=== PATIENT | female | born 1945 | race Caucasian/White ===

== ENCOUNTER 2019-10-13 09:38 | Inpatient (IN) ==
[2019-10-13] MEDS ORDERED: SODIUM CHLORIDE 0.9% 500 ML IV STA (10:07)
[2019-10-13 10:21] LABS: Basophils % 0.4 % (0.0-0.8); Hematocrit 37.7 VOL% (35.7-47.0); Hemoglobin 12.9 GM/DL (12.0-16.0); Immature Granulocytes % 0.6 %; Immature Granulocytes Absolute 0.04 #; Lymphocytes # 0.7 10*3/uL (1.4-4.0); Lymphocytes % 10.7 % (21.3-54.2); Mean Corpuscular HGB Conc 34.2 GM/DL (32-36); Mean Corpuscular Volume 96.2 FL (87-102); Mean Platelet Volume 9.3 FL (9.6-12.0); Monocytes % 7.4 % (1.7-12.7); Neutrophils % 80.9 % (38.7-73.9); Platelet Count 219 T/CUMM (130-400); Red Blood Count 3.92 MC/CUMM (3.8-5.5); Red Cell Distribution Width 12.3 % (9.3-17.3); White Blood Count 6.9 T/CUMM (4-12)
[2019-10-13] MEDS ORDERED: ONDANSETRON 4 MG/2 ML VIAL ONE (10:42)
[2019-10-13] MEDS ORDERED: ONDANSETRON 4 MG/2 ML VIAL IV ONE (10:42)
[2019-10-13] MEDS ORDERED: HYDROmorphone 2 MG/1 ML VIAL IV STA ×2 (10:42→12:13)
[2019-10-13] MEDS ORDERED: HYDROmorphone 2 MG/1 ML VIAL ONE (10:42)
[2019-10-13 10:50] LABS: Albumin 2.9 G/DL (3.4-5.0); Bilirubin,Total 0.4 MG/DL (0.2-1.0); Calcium 7.6 MG/DL (8.5-10.1); Osmolality,Calculated 259.8 MOS/KG (273-304); Total Protein 6.5 G/DL (6.4-8.3)
[2019-10-13] MEDS ORDERED: hydrALAZINE 20 MG/1 ML VIAL IV PRN (11:11)
[2019-10-13] MEDS ORDERED: DOCUSATE SODIUM 100 MG CAPSULE PO PRN (11:11)
[2019-10-13] MEDS ORDERED: GLUCAGON 1 MG VIAL IM PRN (11:11)
[2019-10-13] MEDS ORDERED: ONDANSETRON 4 MG/2 ML VIAL IV PRN (11:11)
[2019-10-13] MEDS ORDERED: DEXTROSE 10% 250 ML BAG IV PRN (11:11)
[2019-10-13] MEDS ORDERED: POTASSIUM CHLORIDE 20 MEQ TABLET PO PRN (11:18)
[2019-10-13] MEDS ORDERED: POTASSIUM CHLORIDE RIDER 10 MEQ in PREMIX 1 EACH IV PRN (11:18)
[2019-10-13 11:20] LABS: Apearance,Urine Slightly Hazy (Clear); Bacteria,Urine Moderate /HPF (Few); Bilirubin,Urine Negative (Negative); Blood, Urine Negative (Negative); Glucose,Urine (UA) Negative (Negative); Ketones,Urine 5 mg/dL (Negative); Mucus,Urine Occasional /LPF (Occasional); Nitrite,Urine Positive (Negative); Protein,Urine Negative; RBC,Urine 1 /HPF (0-4); Squamous Epithelial Cell,Urine Occasional /HPF (0-10); Urine Color Yellow (Yellow); Urine Specific Gravity 1.016 (1.001-1.035); Urine Urobilinogen < 2.0 EU/DL (0.2-1.0); WBC,Urine 3 /HPF (0-6)
[2019-10-13 11:42] LABS: Risk Ratio 2.12; Thyroid Stimulating Hormone 2.54 uIU/ml (0.358-3.74); VLDL CHOLESTEROL 17.4 MG/DL
[2019-10-13] MEDS: SODIUM CHLORIDE 0.9% 1,000 ML IV SCH (14:41)
[2019-10-13] MEDS: amLODIPine 10 MG TABLET PO SCH (14:42)
[2019-10-13] MEDS: HYDROmorphone 2 MG/1 ML VIAL IV PRN ×4 (14:47→23:10)
[2019-10-13] MEDS: carvediloL 25 MG TABLET PO SCH (20:36)
[2019-10-13] MEDS: carBAMazepine 200 MG TABLET PO SCH (23:00)
[2019-10-14] MEDS: HYDROmorphone 2 MG/1 ML VIAL IV PRN (01:21)
[2019-10-14] MEDS: SODIUM CHLORIDE 0.9% 1,000 ML IV SCH ×3 (01:52→19:00)
[2019-10-14 05:50] LABS: Basophils % 0.3 % (0.0-0.8); Eosinophils % 0.2 % (0.00-10.9); Hematocrit 33.2 VOL% (35.7-47.0); Hemoglobin 11.2 GM/DL (12.0-16.0); Immature Granulocytes % 0.5 %; Immature Granulocytes Absolute 0.03 #; Lymphocytes # 1.2 10*3/uL (1.4-4.0); Mean Corpuscular HGB Conc 33.7 GM/DL (32-36); Mean Corpuscular Volume 98.5 FL (87-102); Mean Platelet Volume 9.6 FL (9.6-12.0); Monocytes % 14.7 % (1.7-12.7); Neutrophils % 64.3 % (38.7-73.9); Platelet Count 202 T/CUMM (130-400); Red Blood Count 3.37 MC/CUMM (3.8-5.5); Red Cell Distribution Width 12.3 % (9.3-17.3); White Blood Count 5.8 T/CUMM (4-12)
[2019-10-14 06:09] LABS: Calcium 7.9 MG/DL (8.5-10.1); Osmolality,Calculated 258.8 MOS/KG (273-304)
[2019-10-14] MEDS ORDERED: ceFAZolin 1,000 MG in SYRINGE 1 EACH IV ONE (07:00)
[2019-10-14] MEDS ORDERED: BACITRACIN OINT 0.9 GM PACK TOP ONE (08:56)
[2019-10-14] MEDS ORDERED: MORPHINE 4 MG/1 ML VIAL IV PRN ×2 (09:05)
[2019-10-14] MEDS ORDERED: KETOROLAC 15 MG/1 ML VIAL IV PRN (09:05)
[2019-10-14] MEDS ORDERED: SEVOFLURANE 1 UNIT/15 MINUTE INH ONE (09:23)
[2019-10-14] MEDS ORDERED: ROPIVACAINE 0.5% 30 ML VIAL ONE (09:23)
[2019-10-14] MEDS ORDERED: PHENYLEPHRINE DRIP 20 MG/250 ML PREMIX IV ONE (09:23)
[2019-10-14] MEDS ORDERED: ONDANSETRON 4 MG/2 ML VIAL ONE ×2 (09:24→09:52)
[2019-10-14] MEDS ORDERED: fentaNYL 100 MCG/2 ML VIAL ONE (09:24)
[2019-10-14] MEDS ORDERED: ePHEDrine 50 MG/ML VIAL ONE (09:24)
[2019-10-14] MEDS ORDERED: ROCURONIUM 100 MG/10 ML VIAL IV ONE (09:25)
[2019-10-14] MEDS ORDERED: GLYCOPYRROLATE 0.4 MG/2 ML VIAL ONE (09:25)
[2019-10-14] MEDS ORDERED: PHENYLEPHRINE 1 MG/10 ML SYRINGE IV ONE (09:25)
[2019-10-14] MEDS ORDERED: propofoL 200 MG/20 ML VIAL IV ONE (09:25)
[2019-10-14] MEDS ORDERED: NEOSTIGMINE 10 MG/10 ML VIAL ONE (09:25)
[2019-10-14] MEDS ORDERED: ONDANSETRON 4 MG/2 ML VIAL IV PRN (09:48)
[2019-10-14] MEDS ORDERED: HYDROmorphone 2 MG/1 ML VIAL IV PRN (09:48)
[2019-10-14] MEDS ORDERED: HYDROmorphone 2 MG/1 ML VIAL ONE (09:51)
[2019-10-14] MEDS: ATORVASTATIN 20 MG TABLET PO SCH (12:20)
[2019-10-14] MEDS: amLODIPine 10 MG TABLET PO SCH (12:20)
[2019-10-14] MEDS: ASPIRIN EC 81 MG TABLET PO SCH (12:20)
[2019-10-14] MEDS: carBAMazepine 200 MG TABLET PO SCH ×2 (12:20→18:16)
[2019-10-14] MEDS: carvediloL 25 MG TABLET PO SCH ×2 (12:20→20:52)
[2019-10-15] MEDS: FONDAPARINUX 2.5 MG/0.5 ML SYRINGE SUBCUT SCH (05:18)
[2019-10-15 05:46] LABS: Basophils % 0.2 % (0.0-0.8); Eosinophils % 0.2 % (0.00-10.9); Hematocrit 25.5 VOL% (35.7-47.0); Hemoglobin 8.5 GM/DL (12.0-16.0); Immature Granulocytes % 0.3 %; Immature Granulocytes Absolute 0.02 #; Lymphocytes # 0.8 10*3/uL (1.4-4.0); Lymphocytes % 13.9 % (21.3-54.2); Mean Corpuscular HGB Conc 33.3 GM/DL (32-36); Mean Corpuscular Volume 98.5 FL (87-102); Mean Platelet Volume 9.9 FL (9.6-12.0); Monocytes % 10.7 % (1.7-12.7); Neutrophils % 74.7 % (38.7-73.9); Red Cell Distribution Width 12.2 % (9.3-17.3)
[2019-10-15 06:10] LABS: Calcium 7.5 MG/DL (8.5-10.1); Osmolality,Calculated 262.5 MOS/KG (273-304)
[2019-10-15 06:35] LABS: Platelet Count 154 T/CUMM (130-400); Red Blood Count 2.59 MC/CUMM (3.8-5.5)
[2019-10-15 06:47] LABS: Microcytosis Slight; Ovalocytes Slight; Platelet Estimate Adequate
[2019-10-15] MEDS: amLODIPine 10 MG TABLET PO SCH (08:24)
[2019-10-15] MEDS: carvediloL 25 MG TABLET PO SCH ×2 (08:24→20:38)
[2019-10-15 08:53] LABS: Ferritin 78.7 ng/ml (8-252)
[2019-10-15 09:00] LABS: Folate 8.7 NG/ML (5.4-24.0); Vitamin B12 218 PG/ML (211-911)
[2019-10-15] MEDS: cefTRIAXone 1,000 MG in SYRINGE 1 EACH IV SCH (10:05)
[2019-10-15] MEDS: carBAMazepine 200 MG TABLET PO SCH ×2 (10:05→18:08)
[2019-10-15] MEDS: ATORVASTATIN 20 MG TABLET PO SCH (10:05)
[2019-10-15] MEDS: ASPIRIN EC 81 MG TABLET PO SCH (10:05)
[2019-10-15 10:15] LABS: Basophils % 0.3 % (0.0-0.8); Eosinophils % 0.2 % (0.00-10.9); Hematocrit 25.5 VOL% (35.7-47.0); Hemoglobin 8.6 GM/DL (12.0-16.0); Immature Granulocytes % 0.3 %; Immature Granulocytes Absolute 0.02 #; Lymphocytes # 0.9 10*3/uL (1.4-4.0); Lymphocytes % 13.1 % (21.3-54.2); Mean Corpuscular HGB Conc 33.7 GM/DL (32-36); Mean Corpuscular Volume 98.1 FL (87-102); Mean Platelet Volume 9.7 FL (9.6-12.0); Monocytes % 11.1 % (1.7-12.7); Platelet Count 150 T/CUMM (130-400); Red Cell Distribution Width 12.2 % (9.3-17.3); White Blood Count 6.5 T/CUMM (4-12)
[2019-10-15 11:23] LABS: Sedimentation Rate-Westergren 40 MM/HR (0-30)
[2019-10-15] MEDS: FERRIC GLUCONATE COMPLEX 125 MG in SODIUM CHLORIDE 0.9% 100 ML IV SCH (12:18)
[2019-10-16] MEDS: FONDAPARINUX 2.5 MG/0.5 ML SYRINGE SUBCUT SCH (05:37)
[2019-10-16 06:26] LABS: Calcium 7.7 MG/DL (8.5-10.1); Osmolality,Calculated 266.2 MOS/KG (273-304)
[2019-10-16 06:35] LABS: Basophils % 0.2 % (0.0-0.8); Eosinophils % 0.6 % (0.00-10.9); Hematocrit 23.9 VOL% (35.7-47.0); Hemoglobin 7.9 GM/DL (12.0-16.0); Immature Granulocytes % 0.4 %; Immature Granulocytes Absolute 0.02 #; Lymphocytes # 1.1 10*3/uL (1.4-4.0); Lymphocytes % 19.7 % (21.3-54.2); Mean Corpuscular HGB Conc 33.1 GM/DL (32-36); Mean Corpuscular Volume 97.6 FL (87-102); Mean Platelet Volume 10.2 FL (9.6-12.0); Monocytes % 11.8 % (1.7-12.7); Neutrophils % 67.3 % (38.7-73.9); Platelet Count 155 T/CUMM (130-400); Red Blood Count 2.45 MC/CUMM (3.8-5.5); Red Cell Distribution Width 12.1 % (9.3-17.3); White Blood Count 5.4 T/CUMM (4-12)
[2019-10-16] MEDS: amLODIPine 10 MG TABLET PO SCH (10:33)
[2019-10-16] MEDS: carvediloL 25 MG TABLET PO SCH ×2 (10:33→20:56)
[2019-10-16] MEDS: ASPIRIN EC 81 MG TABLET PO SCH (10:33)
[2019-10-16] MEDS: ATORVASTATIN 20 MG TABLET PO SCH (10:33)
[2019-10-16] MEDS: MAGNESIUM HYDROXIDE SUSP 30 ML UDCUP PO PRN ×2 (10:34→18:00)
[2019-10-16] MEDS: carBAMazepine 200 MG TABLET PO SCH ×2 (10:34→18:00)
[2019-10-16] MEDS: cefTRIAXone 1,000 MG in SYRINGE 1 EACH IV SCH (10:35)
[2019-10-16] MEDS: FERRIC GLUCONATE COMPLEX 125 MG in SODIUM CHLORIDE 0.9% 100 ML IV SCH (10:38)
[2019-10-16] MEDS: DOCUSATE SODIUM 100 MG CAPSULE PO SCH (20:55)
[2019-10-17] MEDS: FONDAPARINUX 2.5 MG/0.5 ML SYRINGE SUBCUT SCH (05:43)
[2019-10-17 06:04] LABS: Basophils % 0.4 % (0.0-0.8); Eosinophils # 0.1 10*3/uL (0.0-0.87); Hematocrit 21.4 VOL% (35.7-47.0); Hemoglobin 7.1 GM/DL (12.0-16.0); Immature Granulocytes % 0.7 %; Immature Granulocytes Absolute 0.03 #; Lymphocytes % 21.8 % (21.3-54.2); Mean Corpuscular HGB Conc 33.2 GM/DL (32-36); Mean Corpuscular Volume 98.6 FL (87-102); Mean Platelet Volume 10.3 FL (9.6-12.0); Monocytes % 13.1 % (1.7-12.7); Platelet Count 167 T/CUMM (130-400); Red Blood Count 2.17 MC/CUMM (3.8-5.5); Red Cell Distribution Width 12.5 % (9.3-17.3); White Blood Count 4.5 T/CUMM (4-12)
[2019-10-17 06:17] LABS: Calcium 7.5 MG/DL (8.5-10.1); Osmolality,Calculated 268.1 MOS/KG (273-304)
[2019-10-17] MEDS ORDERED: SODIUM CHLORIDE 0.9% 1,000 ML IV PRN (07:32)
[2019-10-17] MEDS ORDERED: FUROSEMIDE 20 MG/2 ML VIAL IV PRN (07:32)
[2019-10-17] MEDS: MAGNESIUM HYDROXIDE SUSP 30 ML UDCUP PO PRN ×2 (10:31→18:28)
[2019-10-17] MEDS: carvediloL 25 MG TABLET PO SCH ×2 (10:31→21:15)
[2019-10-17] MEDS: DOCUSATE SODIUM 100 MG CAPSULE PO SCH ×2 (10:31→21:15)
[2019-10-17] MEDS: ASPIRIN EC 81 MG TABLET PO SCH (10:32)
[2019-10-17] MEDS: amLODIPine 10 MG TABLET PO SCH (10:32)
[2019-10-17] MEDS: ATORVASTATIN 20 MG TABLET PO SCH (10:32)
[2019-10-17] MEDS: cefTRIAXone 1,000 MG in SYRINGE 1 EACH IV SCH (10:32)
[2019-10-17] MEDS: carBAMazepine 200 MG TABLET PO SCH ×2 (10:32→18:28)
[2019-10-17 10:34] LABS: Hemoglobin A1 (Alkaline) 97.2 % (96.5-98.5); Hemoglobin A2 (Alkaline) 2.8 % (1.5-3.5)
[2019-10-17] MEDS: FERRIC GLUCONATE COMPLEX 125 MG in SODIUM CHLORIDE 0.9% 100 ML IV SCH (10:37)
[2019-10-17 18:36] LABS: Hematocrit 31.7 VOL% (35.7-47.0); Hemoglobin 10.6 GM/DL (12.0-16.0)
[2019-10-18] MEDS: FONDAPARINUX 2.5 MG/0.5 ML SYRINGE SUBCUT SCH (05:09)
[2019-10-18 05:47] LABS: Basophils % 0.6 % (0.0-0.8); Eosinophils # 0.1 10*3/uL (0.0-0.87); Eosinophils % 1.7 % (0.00-10.9); Hematocrit 32.3 VOL% (35.7-47.0); Hemoglobin 10.9 GM/DL (12.0-16.0); Immature Granulocytes % 0.6 %; Immature Granulocytes Absolute 0.03 #; Lymphocytes # 0.9 10*3/uL (1.4-4.0); Lymphocytes % 16.3 % (21.3-54.2); Mean Corpuscular HGB Conc 33.7 GM/DL (32-36); Mean Corpuscular Volume 93.4 FL (87-102); Mean Platelet Volume 10.1 FL (9.6-12.0); Monocytes % 9.4 % (1.7-12.7); Neutrophils % 71.4 % (38.7-73.9); Platelet Count 213 T/CUMM (130-400); Red Blood Count 3.46 MC/CUMM (3.8-5.5); White Blood Count 5.2 T/CUMM (4-12)
[2019-10-18 05:59] LABS: Calcium 7.6 MG/DL (8.5-10.1); Osmolality,Calculated 261.7 MOS/KG (273-304)
[2019-10-18] MEDS: cefTRIAXone 1,000 MG in SYRINGE 1 EACH IV SCH (09:49)
[2019-10-18] MEDS: FERRIC GLUCONATE COMPLEX 125 MG in SODIUM CHLORIDE 0.9% 100 ML IV SCH (09:57)
[2019-10-18] MEDS: carBAMazepine 200 MG TABLET PO SCH (09:59)
[2019-10-18] MEDS: carvediloL 25 MG TABLET PO SCH (09:59)
[2019-10-18] MEDS: DOCUSATE SODIUM 100 MG CAPSULE PO SCH (09:59)
[2019-10-18] MEDS: ASPIRIN EC 81 MG TABLET PO SCH (09:59)
[2019-10-18] MEDS: amLODIPine 10 MG TABLET PO SCH (09:59)
[2019-10-18] MEDS: ATORVASTATIN 20 MG TABLET PO SCH (10:01)
[2019-10-18 11:40] VITALS: BP 158/101
[2019-10-18] MEDS ORDERED: TOLTERODINE LA 2 MG CAPSULE PO SCH (21:00)
[2019-10-18] MEDS ORDERED: DONEPEZIL 10 MG TABLET PO SCH (21:00)
[2019-10-19] MEDS ORDERED: LEVOTHYROXINE 50 MCG TABLET PO SCH (06:30)
[2019-10-19] MEDS ORDERED: INTERFERON BETA 30 MCG IM SCH (07:35)
== END 2019-10-18 13:29 | DRG 481 ==
LOC: EDBD → EDUNIT# → N.ED 09:38 → N.EDINP 11:09 → N.3E 17:25
PROVIDERS: ADMIT Internal Medicine; ATTEND Internal Medicine

== ENCOUNTER 2020-04-25 14:07 | Inpatient (IN) ==
[2020-04-25 14:31] LABS: Basophils % 0.4 % (0.0-0.8); Eosinophils % 0.2 % (0.00-10.9); Hematocrit 38.5 VOL% (35.7-47.0); Hemoglobin 13.4 GM/DL (12.0-16.0); Immature Granulocytes % 0.4 %; Immature Granulocytes Absolute 0.02 #; Lymphocytes # 0.9 10*3/uL (1.4-4.0); Lymphocytes % 16.4 % (21.3-54.2); Mean Corpuscular HGB Conc 34.8 GM/DL (32-36); Mean Platelet Volume 9.6 FL (9.6-12.0); Monocytes % 7.8 % (1.7-12.7); Neutrophils % 74.8 % (38.7-73.9); Platelet Count 191 T/CUMM (130-400); Red Blood Count 4.01 MC/CUMM (3.8-5.5); Red Cell Distribution Width 12.1 % (9.3-17.3); White Blood Count 5.2 T/CUMM (4-12)
[2020-04-25 14:39] LABS: PT Patient Result 10.9 SECS (9.8-11.9)
[2020-04-25 15:04] LABS: Alanine Aminotransferase 17 U/L (13-56); Albumin 3.3 G/DL (3.4-5.0); Alkaline Phosphatase 102 U/L (45-117); Aspartate Amino Transferase 13 U/L (0-37); Bilirubin,Total < 0.39 MG/DL (0.2-1.0); Blood Urea Nitrogen 10 MG/DL (7-18); Calcium 8.3 MG/DL (8.5-10.1); Estimated Glom Filtration Rate 91 ML/MIN; Glucose 118 MG/DL (74-106); Osmolality,Calculated 257.9 MOS/KG (273-304); Total Protein 7.2 G/DL (6.4-8.3)
[2020-04-25] MEDS ORDERED: ONDANSETRON 4 MG/2 ML VIAL ONE (15:13)
[2020-04-25] MEDS ORDERED: HYDROmorphone 2 MG/1 ML VIAL ONE (15:14)
[2020-04-25] MEDS ORDERED: HYDROmorphone 2 MG/1 ML VIAL IV STA ×2 (15:21→16:16)
[2020-04-25] MEDS ORDERED: ONDANSETRON 4 MG/2 ML VIAL IV STA (15:21)
[2020-04-25] MEDS ORDERED: MORPHINE 4 MG/1 ML VIAL IV PRN (15:25)
[2020-04-25 15:33] LABS: Bilirubin,Urine Negative (Negative); Blood, Urine Negative (Negative); Glucose,Urine (UA) Negative (Negative); Hyaline Casts,Urine 1 /LPF (0-3); Ketones,Urine Negative (Negative); Mucus,Urine Occasional /LPF (Occasional); Nitrite,Urine Negative (Negative); Protein,Urine Negative; RBC,Urine 1 /HPF (0-4); Urine Appearance CLEAR (Clear); Urine Color Yellow (Yellow); Urine Specific Gravity 1.009 (1.001-1.035); Urine Urobilinogen < 2.0 EU/DL (0.2-1.0); WBC,Urine <1 /HPF (0-6)
[2020-04-25] MEDS ORDERED: GLUCAGON 1 MG VIAL IM PRN (16:12)
[2020-04-25] MEDS ORDERED: DEXTROSE 50% 25 GM/50 ML VIAL IV PRN (16:12)
[2020-04-25] MEDS ORDERED: hydrALAZINE 20 MG/1 ML VIAL ONE (16:27)
[2020-04-25] MEDS ORDERED: hydrALAZINE 20 MG/1 ML VIAL IV STA (16:30)
[2020-04-25] MEDS ORDERED: LABETALOL 20 MG/4 ML SYRINGE IV ONE (17:17)
[2020-04-25] MEDS: SODIUM CHLORIDE 0.9% 1,000 ML IV SCH (17:33)
[2020-04-25] MEDS: LACTATED RINGERS 1,000 ML IV SCH (18:41)
[2020-04-25] MEDS ORDERED: carBAMazepine 200 MG TABLET PO SCH (21:00)
[2020-04-25] MEDS: DONEPEZIL 10 MG TABLET PO SCH (21:48)
[2020-04-25] MEDS: carvediloL 25 MG TABLET PO SCH (21:48)
[2020-04-25] MEDS: TOLTERODINE LA 2 MG CAPSULE PO SCH (21:52)
[2020-04-25] MEDS: hydrALAZINE 20 MG/1 ML VIAL IV PRN (21:53)
[2020-04-26] MEDS: MORPHINE 4 MG/1 ML VIAL IV PRN ×2 (01:26→04:26)
[2020-04-26] MEDS: LACTATED RINGERS 1,000 ML IV SCH ×2 (04:39→18:01)
[2020-04-26 05:29] LABS: Basophils % 0.4 % (0.0-0.8); Eosinophils % 0.2 % (0.00-10.9); Hematocrit 38.9 VOL% (35.7-47.0); Hemoglobin 13.7 GM/DL (12.0-16.0); Immature Granulocytes % 0.4 %; Immature Granulocytes Absolute 0.04 #; Lymphocytes # 0.6 10*3/uL (1.4-4.0); Lymphocytes % 6.5 % (21.3-54.2); Mean Corpuscular HGB Conc 35.2 GM/DL (32-36); Mean Corpuscular Volume 95.3 FL (87-102); Monocytes % 6.3 % (1.7-12.7); Neutrophils % 86.2 % (38.7-73.9); Platelet Count 194 T/CUMM (130-400); Red Blood Count 4.08 MC/CUMM (3.8-5.5); Red Cell Distribution Width 12.4 % (9.3-17.3); White Blood Count 9.9 T/CUMM (4-12)
[2020-04-26 05:58] LABS: Calcium 8.3 MG/DL (8.5-10.1); Osmolality,Calculated 256.1 MOS/KG (273-304)
[2020-04-26] MEDS ORDERED: ceFAZolin 1,000 MG in SYRINGE 1 EACH IV ONE (06:00)
[2020-04-26] MEDS ORDERED: VANCOMYCIN INJ 1,000 MG in SODIUM CHLORIDE 0.9% 250 ML IV ONE (06:00)
[2020-04-26] MEDS: LEVOTHYROXINE 50 MCG TABLET PO SCH (06:27)
[2020-04-26] MEDS: SODIUM CHLORIDE 0.9% 1,000 ML IV SCH (06:30)
[2020-04-26] MEDS ORDERED: BACITRACIN OINT 0.9 GM PACK TOP ONE (06:35)
[2020-04-26] MEDS ORDERED: LIDOCAINE 2% 5 ML VIAL ONE (06:35)
[2020-04-26] MEDS ORDERED: propofoL 200 MG/20 ML VIAL IV ONE (06:35)
[2020-04-26] MEDS ORDERED: fentaNYL 100 MCG/2 ML VIAL ONE (06:35)
[2020-04-26] MEDS ORDERED: ROCURONIUM 50 MG/5 ML VIAL IV ONE (06:35)
[2020-04-26] MEDS ORDERED: SEVOFLURANE 1 UNIT/15 MINUTE INH ONE ×4 (06:36→08:15)
[2020-04-26] MEDS ORDERED: PHENYLEPHRINE 1 MG/10 ML SYRINGE IV ONE ×2 (07:23→08:37)
[2020-04-26] MEDS ORDERED: ePHEDrine 50 MG/ML VIAL ONE (07:36)
[2020-04-26] MEDS ORDERED: ceFAZolin 1,000 MG VIAL ONE (07:40)
[2020-04-26] MEDS ORDERED: ACETAMINOPHEN 1,000 MG/100 ML VIAL IV ONE (07:44)
[2020-04-26] MEDS ORDERED: TRANEXAMIC ACID 1,000 MG/10 ML VIAL ONE (07:44)
[2020-04-26] MEDS ORDERED: SODIUM CHLORIDE 0.9% 100 ML IV ONE (07:46)
[2020-04-26] MEDS ORDERED: DEXAMETHASONE 4 MG/1 ML VIAL ONE ×2 (07:52→08:14)
[2020-04-26] MEDS ORDERED: ONDANSETRON 4 MG/2 ML VIAL ONE (07:52)
[2020-04-26] MEDS: ASPIRIN EC 81 MG TABLET PO SCH (08:02)
[2020-04-26] MEDS: amLODIPine 10 MG TABLET PO SCH (08:02)
[2020-04-26] MEDS: ATORVASTATIN 20 MG TABLET PO SCH (08:02)
[2020-04-26] MEDS: carvediloL 25 MG TABLET PO SCH ×2 (08:02→21:00)
[2020-04-26] MEDS: carBAMazepine 200 MG TABLET PO SCH (08:02)
[2020-04-26] MEDS ORDERED: ROPIVACAINE 0.5% 30 ML VIAL ONE (08:15)
[2020-04-26] MEDS ORDERED: KETOROLAC 30 MG/1 ML VIAL ONE (08:15)
[2020-04-26] MEDS ORDERED: LIDOCAINE 1% 5 ML VIAL ONE (08:15)
[2020-04-26] MEDS ORDERED: LACTATED RINGERS 1,000 ML IV ONE (08:28)
[2020-04-26] MEDS ORDERED: NEOSTIGMINE 10 MG/10 ML VIAL ONE ×3 (08:29)
[2020-04-26] MEDS ORDERED: GLYCOPYRROLATE 0.4 MG/2 ML VIAL ONE (08:29)
[2020-04-26] MEDS ORDERED: METOPROLOL TARTRATE 5 MG/5 ML VIAL IV ONE (08:32)
[2020-04-26] MEDS ORDERED: MAGNESIUM HYDROXIDE SUSP 30 ML UDCUP PO PRN (08:48)
[2020-04-26] MEDS: KETOROLAC 15 MG/1 ML VIAL IV SCH ×3 (10:16→21:02)
[2020-04-26] MEDS: DOCUSATE SODIUM 100 MG CAPSULE PO SCH ×2 (10:16→21:00)
[2020-04-26] MEDS: ceFAZolin 1,000 MG in SYRINGE 1 EACH IV SCH ×2 (12:40→20:59)
[2020-04-26] MEDS: TOLTERODINE LA 2 MG CAPSULE PO SCH (21:00)
[2020-04-26] MEDS: DONEPEZIL 10 MG TABLET PO SCH (21:00)
[2020-04-27] MEDS: KETOROLAC 15 MG/1 ML VIAL IV SCH (04:55)
[2020-04-27] MEDS: FONDAPARINUX 2.5 MG/0.5 ML SYRINGE SUBCUT SCH (04:55)
[2020-04-27] MEDS: ceFAZolin 1,000 MG in SYRINGE 1 EACH IV SCH ×3 (04:57→21:19)
[2020-04-27] MEDS: LEVOTHYROXINE 50 MCG TABLET PO SCH (05:30)
[2020-04-27 05:47] LABS: Basophils % 0.3 % (0.0-0.8); Eosinophils # 0.1 10*3/uL (0.0-0.87); Eosinophils % 1.3 % (0.00-10.9); Hematocrit 31.1 VOL% (35.7-47.0); Immature Granulocytes % 0.4 %; Immature Granulocytes Absolute 0.03 #; Lymphocytes # 0.9 10*3/uL (1.4-4.0); Lymphocytes % 13.8 % (21.3-54.2); Mean Corpuscular Volume 97.2 FL (87-102); Mean Platelet Volume 9.9 FL (9.6-12.0); Monocytes % 9.4 % (1.7-12.7); Neutrophils % 74.8 % (38.7-73.9); Red Cell Distribution Width 12.3 % (9.3-17.3)
[2020-04-27 05:51] LABS: Hemoglobin 10.9 GM/DL (12.0-16.0); Platelet Count 151 T/CUMM (130-400); White Blood Count 6.7 T/CUMM (4-12)
[2020-04-27] MEDS: hydrALAZINE 20 MG/1 ML VIAL IV PRN ×2 (06:15→22:38)
[2020-04-27 06:51] LABS: Calcium 8.2 MG/DL (8.5-10.1); Osmolality,Calculated 263.5 MOS/KG (273-304)
[2020-04-27] MEDS: ASPIRIN EC 81 MG TABLET PO SCH (09:27)
[2020-04-27] MEDS: DOCUSATE SODIUM 100 MG CAPSULE PO SCH ×2 (09:27→21:19)
[2020-04-27] MEDS: carvediloL 25 MG TABLET PO SCH ×2 (09:27→21:19)
[2020-04-27] MEDS: ATORVASTATIN 20 MG TABLET PO SCH (09:27)
[2020-04-27] MEDS: carBAMazepine 200 MG TABLET PO SCH (09:28)
[2020-04-27] MEDS: amLODIPine 10 MG TABLET PO SCH (09:28)
[2020-04-27] MEDS: LACTATED RINGERS 1,000 ML IV SCH (09:58)
[2020-04-27] MEDS: DONEPEZIL 10 MG TABLET PO SCH (21:19)
[2020-04-27] MEDS: TOLTERODINE LA 2 MG CAPSULE PO SCH (21:19)
[2020-04-28] MEDS: LACTATED RINGERS 1,000 ML IV SCH (02:11)
[2020-04-28] MEDS: FONDAPARINUX 2.5 MG/0.5 ML SYRINGE SUBCUT SCH (04:56)
[2020-04-28] MEDS: ceFAZolin 1,000 MG in SYRINGE 1 EACH IV SCH ×3 (04:56→19:15)
[2020-04-28] MEDS: LEVOTHYROXINE 50 MCG TABLET PO SCH (05:40)
[2020-04-28 05:55] LABS: Basophils % 0.5 % (0.0-0.8); Eosinophils # 0.1 10*3/uL (0.0-0.87); Eosinophils % 1.4 % (0.00-10.9); Hematocrit 29.3 VOL% (35.7-47.0); Hemoglobin 10.2 GM/DL (12.0-16.0); Immature Granulocytes % 0.5 %; Immature Granulocytes Absolute 0.03 #; Lymphocytes % 16.8 % (21.3-54.2); Mean Corpuscular HGB Conc 34.8 GM/DL (32-36); Mean Platelet Volume 10.6 FL (9.6-12.0); Neutrophils % 70.8 % (38.7-73.9); Platelet Count 150 T/CUMM (130-400); Red Blood Count 3.02 MC/CUMM (3.8-5.5); Red Cell Distribution Width 12.5 % (9.3-17.3); White Blood Count 5.8 T/CUMM (4-12)
[2020-04-28 06:34] LABS: Calcium 8.1 MG/DL (8.5-10.1); Osmolality,Calculated 263.4 MOS/KG (273-304)
[2020-04-28] MEDS: ATORVASTATIN 20 MG TABLET PO SCH (10:53)
[2020-04-28] MEDS: ASPIRIN EC 81 MG TABLET PO SCH (10:53)
[2020-04-28] MEDS: DOCUSATE SODIUM 100 MG CAPSULE PO SCH ×2 (10:53→20:39)
[2020-04-28] MEDS: carvediloL 25 MG TABLET PO SCH ×2 (10:53→20:39)
[2020-04-28] MEDS: carBAMazepine 200 MG TABLET PO SCH (10:53)
[2020-04-28] MEDS: amLODIPine 10 MG TABLET PO SCH (10:54)
[2020-04-28] MEDS: DONEPEZIL 10 MG TABLET PO SCH (20:39)
[2020-04-28] MEDS: TOLTERODINE LA 2 MG CAPSULE PO SCH (20:39)
[2020-04-29] MEDS: FONDAPARINUX 2.5 MG/0.5 ML SYRINGE SUBCUT SCH (03:13)
[2020-04-29] MEDS: ceFAZolin 1,000 MG in SYRINGE 1 EACH IV SCH ×3 (03:13→20:24)
[2020-04-29] MEDS: LACTATED RINGERS 1,000 ML IV SCH (03:31)
[2020-04-29 05:47] LABS: Basophils % 0.8 % (0.0-0.8); Eosinophils # 0.1 10*3/uL (0.0-0.87); Eosinophils % 1.6 % (0.00-10.9); Hematocrit 31.6 VOL% (35.7-47.0); Hemoglobin 10.7 GM/DL (12.0-16.0); Immature Granulocytes % 0.5 %; Immature Granulocytes Absolute 0.02 #; Lymphocytes # 0.7 10*3/uL (1.4-4.0); Lymphocytes % 18.9 % (21.3-54.2); Mean Corpuscular HGB Conc 33.9 GM/DL (32-36); Mean Corpuscular Volume 98.8 FL (87-102); Mean Platelet Volume 10.4 FL (9.6-12.0); Monocytes % 17.8 % (1.7-12.7); Neutrophils % 60.4 % (38.7-73.9); Platelet Count 152 T/CUMM (130-400); Red Cell Distribution Width 12.3 % (9.3-17.3); White Blood Count 3.7 T/CUMM (4-12)
[2020-04-29 06:04] LABS: Calcium 8.1 MG/DL (8.5-10.1); Osmolality,Calculated 263.4 MOS/KG (273-304)
[2020-04-29] MEDS: LEVOTHYROXINE 50 MCG TABLET PO SCH (06:04)
[2020-04-29] MEDS: hydrALAZINE 20 MG/1 ML VIAL IV PRN (06:04)
[2020-04-29 06:35] LABS: Eosinophils 1 % (0-10); Hypochromasia Slight; Lymphocytes 17 % (20-55); Segmented Neutrophils 72 % (50-85); Total Cells Counted 100
[2020-04-29 06:36] LABS: Microcytosis Slight; Platelet Estimate Adequate
[2020-04-29] MEDS: ASPIRIN EC 81 MG TABLET PO SCH (08:44)
[2020-04-29] MEDS: ATORVASTATIN 20 MG TABLET PO SCH (08:44)
[2020-04-29] MEDS: carvediloL 25 MG TABLET PO SCH ×2 (08:44→20:24)
[2020-04-29] MEDS: DOCUSATE SODIUM 100 MG CAPSULE PO SCH ×2 (08:44→20:24)
[2020-04-29] MEDS: amLODIPine 10 MG TABLET PO SCH (08:45)
[2020-04-29] MEDS: carBAMazepine 200 MG TABLET PO SCH (08:45)
[2020-04-29] MEDS: TOLTERODINE LA 2 MG CAPSULE PO SCH (20:24)
[2020-04-29] MEDS: DONEPEZIL 10 MG TABLET PO SCH (20:24)
[2020-04-30] MEDS: FONDAPARINUX 2.5 MG/0.5 ML SYRINGE SUBCUT SCH (03:33)
[2020-04-30] MEDS: ceFAZolin 1,000 MG in SYRINGE 1 EACH IV SCH ×2 (03:33→13:05)
[2020-04-30] MEDS: hydrALAZINE 20 MG/1 ML VIAL IV PRN (04:56)
[2020-04-30] MEDS: LEVOTHYROXINE 50 MCG TABLET PO SCH (05:36)
[2020-04-30 05:54] LABS: Basophils % 0.9 % (0.0-0.8); Eosinophils % 0.6 % (0.00-10.9); Hematocrit 33.9 VOL% (35.7-47.0); Hemoglobin 11.7 GM/DL (12.0-16.0); Immature Granulocytes % 0.9 %; Immature Granulocytes Absolute 0.03 #; Lymphocytes # 0.7 10*3/uL (1.4-4.0); Lymphocytes % 20.9 % (21.3-54.2); Mean Corpuscular HGB Conc 34.5 GM/DL (32-36); Mean Platelet Volume 10.2 FL (9.6-12.0); Monocytes % 18.9 % (1.7-12.7); Neutrophils % 57.8 % (38.7-73.9); Platelet Count 184 T/CUMM (130-400); Red Blood Count 3.53 MC/CUMM (3.8-5.5); Red Cell Distribution Width 12.4 % (9.3-17.3); White Blood Count 3.4 T/CUMM (4-12)
[2020-04-30 06:11] LABS: Calcium 8.1 MG/DL (8.5-10.1); Osmolality,Calculated 261.5 MOS/KG (273-304)
[2020-04-30 06:30] LABS: Band Neutrophils 1 % (0-10); Lymphocytes 14 % (20-55); Platelet Estimate Normal; Segmented Neutrophils 67 % (50-85); Total Cells Counted 100
[2020-04-30] MEDS ORDERED: LOSARTAN 25 MG TABLET PO SCH (09:00)
[2020-04-30] MEDS ORDERED: POTASSIUM CHLORIDE 20 MEQ TABLET PO ONE (09:00)
[2020-04-30] MEDS: carvediloL 25 MG TABLET PO SCH (09:56)
[2020-04-30] MEDS: DOCUSATE SODIUM 100 MG CAPSULE PO SCH (09:56)
[2020-04-30] MEDS: ASPIRIN EC 81 MG TABLET PO SCH (09:56)
[2020-04-30] MEDS: ATORVASTATIN 20 MG TABLET PO SCH (09:56)
[2020-04-30] MEDS: amLODIPine 10 MG TABLET PO SCH (09:56)
[2020-04-30] MEDS: carBAMazepine 200 MG TABLET PO SCH (09:58)
[2020-04-30 13:16] LABS: Bacteria,Urine Occasional /HPF (Few); Bilirubin,Urine Negative (Negative); Blood, Urine Negative (Negative); Glucose,Urine (UA) Negative (Negative); Ketones,Urine 80 mg/dL (Negative); Mucus,Urine Occasional /LPF (Occasional); Nitrite,Urine Negative (Negative); Protein,Urine Negative; RBC,Urine 1 /HPF (0-4); Squamous Epithelial Cell,Urine Occasional /HPF (0-10); Urine Appearance CLEAR (Clear); Urine Color Yellow (Yellow); Urine Specific Gravity 1.017 (1.001-1.035); Urine Urobilinogen < 2.0 EU/DL (0.2-1.0); WBC,Urine 1 /HPF (0-6)
[2020-04-30] MEDS ORDERED: ZINC OXIDE 16% PASTE 57 GM TUBE TOP SCH (15:00)
[2020-04-30 15:33] VITALS: BP 160/68
[2020-05-02] MEDS ORDERED: [UNRECOGNIZED DRUG - OTHER] IM SCH (09:00)
[2020-05-02] MEDS ORDERED: ERGOCALCIFEROL 50,000 UNIT CAPSULE PO SCH (09:00)
== END 2020-04-30 18:43 | DRG 522 ==
LOC: EDUNIT# → EDBD → N.ED 14:07 → N.EDINP 16:12 → N.3E 16:40
PROVIDERS: ADMIT Internal Medicine; ATTEND Internal Medicine